=== PATIENT | male | born 2000 | race Caucasian/White ===

== ENCOUNTER 2024-10-02 13:50 | Emergency (ER) | payer BC, SELFPAY ==
[2024-10-02 14:22] VITALS: BP 151/90; PULSE 120; RESP 18; TEMP 36.6; O2SAT 98
[2024-10-02 14:40] VITALS: PULSE 97; O2SAT 98
--- NOTE | 2024-10-02 15:01 | ED_ITS ---
HPI - Epistaxis General: Chief complaint: Epistaxis Stated complaint: bloody nose Time Seen by Provider: 10/02/24 14:44 Source: patient Mode of arrival: ambulatory Limitations: no limitations History of Present Illness: Patient is a 24-year-old male presents to ED today for evaluation of a nosebleed that started while at work while he was eating. No known injury or trauma. He has had minor nosebleeds in the past ever since I was a kid . Upon arrival bleeding is controlled with nose pinching. MD complaint: epistaxis Location: left nostril Onset (ago): hour(s) Context: history of previous Associated symptoms: Deny fever(s), headache(s), sinus pain or vomiting Treatment prior to arrival: nose pinching Related Data Allergies Allergy/AdvReac Type Severity Reaction Status Date / Time No Known Allergies Allergy Verified 10/02/24 14:25 Review of Systems Const: Denies: fever(s) Eyes: Denies: change in vision ENMT: Reports: epistaxis; Denies: throat pain, odynophagia, hoarseness, mouth pain, dental pain, ear or mastoid pain, nasal congestion or sinus pain Card: Denies: chest pain Resp: Denies: dyspnea GI: Denies: nausea or vomiting Musc: Denies: neck pain Neuro: Denies: headache(s) Physical Exam Const: COMMON NORMALS: no acute distress, average body habitus, no limitations, healthy appearing, alert and well nourished GENERAL APPEARANCE: cooperative HENMT: FACE & SINUS: normal facial exam NOSE: Epistaxis present (scant; anterior L nare) on the left anterior source MOUTH: Normal oral and palatal mucosa present and lip normal THROAT: posterior oropharynx normal and tonsils normal Neck/C-Spine: GENERAL: Yes normal visual inspection Neuro: SENSORIUM/ORIENTATION: Yes alert Course Vital Signs: Vital signs: Vital Signs Temperature 97.8 F 10/02/24 14:22 Pulse Rate 97 10/02/24 14:40 Respiratory Rate 18 10/02/24 14:22 Blood Pressure 151/90 10/02/24 14:22 Pulse Oximetry 98 10/02/24 14:40 Oxygen Delivery Me thod Room Air 10/02/24 14:40 MDM - Epistaxis Medical Decision Making Patient's nosebleed was scant upon arrival. Bleeding is from the left anterior nare. Afrin was instilled and nasal clamp applied. This was later removed and patient was monitored for approximately half an hour without any return of bleeding. He will be allowed discharge. Instructions given for if bleeding begins again at home. Differential Diagnosis Likely anterior epistaxis Medical Records I reviewed the patient's medical records. No radiology studies performed this visit Discharge Plan Discharge Patient Disposition: Home Clinical Impression: Epistaxis Condition: Stable Discharge Orders: Discharge ED (Routine); Ordered 10/02/24 Ordered By: Blanca Parekh Patient Instructions: Nosebleed (ED), Epistaxis - Adult Print Language: Indian Coding Level of Care Code ED Etymology Professor for Rachel Zarate
[2024-10-02] MEDS: oxymetazoline 0.05% Nasal Spray 15 mL 2 SPRAY NOSTRIL-L (15:24)
[2024-10-02 16:41] VITALS: PULSE 100; O2SAT 97
== END 2024-10-02 16:42 | disposition home or self-care (01) ==
PROVIDERS: Emergency Provider Physician Assistant
DX: R04.0 Epistaxis (principal)
CPT/HCPCS: 99283; J9999